=== PATIENT | male | born 1990 | race Caucasian/White ===

== ENCOUNTER 2017-01-19 00:22 | Emergency (ER) | payer OTHER ==
--- NOTE | 2017-01-19 02:25 | ED CLINICAL REPORT ---
Clinical Report - Physicians/Mid Levels [facility] [address] [place] [address] 01/19/2017 0:22 Patient: HARPREET BENNETT II Time Seen: 02:17. Arrived- By private vehicle. Historian- patient. HISTORY OF PRESENT ILLNESS Chief Complaint: HEADACHE. Is still present but is better now. This started today 6 PM. Onset during light activity. It is described as similar to previous headaches, pressure and sharp. Located in the region of the left eye and has had neck pain. At its maximum, severity described as 9 / 10. When seen in the E.D., severity described as 2 / 10. The patient has had nausea. No preceding symptoms, blurred vision, photophobia, numbness or weakness. No vomiting. (better withfood). Similar symptoms previously: ( 8 months ago. It was worse. Seen at Prov. CT done by patient report.). REVIEW OF SYSTEMS No fever, muscle aches, ear pain, sore throat or carbon monoxide exposure. No tick bite, head injury, chest pain, difficulty breathing or cough. No abdominal pain, diarrhea or pain with urination. PAST HISTORY PCP: Dr Julian German Ops: None Illness: Headaches, back pain,. SOCIAL HISTORY Never smoker. FAMILY HISTORY History of migraine headaches. ADDITIONAL NOTES The nursing notes have been reviewed. PHYSICAL EXAM Vital Signs: 01/19/2017 01:28 BP: 142/86. HR: 62. RR: 18. O2 saturation: 100%. Temp: 98.4 F. Pain level now: 3/10. Appearance: Alert. No acute distress. Eyes: Pupils equal, round and reactive to light. Eyes normal inspection. ENT: Pharynx normal. Neck: Normal inspection. Neck supple. CVS: Heart sounds normal. Respiratory: No respiratory distress. Abdomen: Soft and nontender. Skin: Normal skin color. Neuro: No alteration in mental status. Alertness is not decreased. Alert. Speech normal. Cranial nerves normal (as tested). No motor deficit. No sensory deficit. Normal gait. No Babinski reflex. PROGRESS AND PROCEDURES Course of Care: Pt has had similar NOBLE before. Sx CW common migraine. No sinus tenderness. Pain resolved while waiting. CLINICAL IMPRESSION Acute migraine headache. INSTRUCTIONS Follow-up: Follow up with your doctor in seven days. Reason for referral: HAVE YOUR DR EVALUATE YOUR HEADACHES. (Electronically signed by Jeancarlos Farris MD 01/19/2017 23:06)
--- NOTE | 2017-01-19 02:25 | ED NURSING NOTES ---
Clinical Report - Nurses [facility] [address] [place] [address] 01/19/2017 0:22 Patient: HARPREET BENNETT II TRIAGE Triage time 01:28. Acuity: LEVEL 4. Chief Complaint: MIGRAINE HEADACHE. Alert. No acute distress. ANNIE COMA SCORE: Annie Coma Scale: 15- eyes open spontaneously (4); best verbal response- oriented x 4 (5); best motor response- obeys commands (6). --01:32 TonyaB, R.N. 01:28 01/19/17. BP: 142/86. HR: 62. RR: 18. O2 saturation: 100%. Temp: 98.4 F. Pain level now: 01/08. --01:32 TonyaB, R.N. Weight: 68 kg. Height/Length: 71 inches. BMI: 20.9. --01:32 TonyaB, R.N. Medications OxyCODONE HCl Oral. --01:29 TonyaB, R.N. Benadryl Oral. --01:29 TonyaB, R.N. Methocarbamol Oral. --01:30 TonyaB, R.N. Allergies No Known Drug Allergy. --01:30 TonyaB, R.N. History Arrived by private vehicle. Historian: patient. Accompanied by friend. This started today. Patient was last known well (1800). 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 PAST MEDICAL HX: Immunizations: up-to-date. SOCIAL HX: Never smoker. No alcohol use or drug use. No recent travel. No infectious disease exposure. No known contact with a sick individual. FALL RISK ASSESSMENT: Fall risk assessment completed. No fall risk identified. NUTRITIONAL RISK ASSESSMENT: The nutritional risk assessment revealed no deficiencies. FUNCTIONAL ASSESSMENT: Functional assessment: no impairments noted. LEARNING NEEDS ASSESSMENT: The learning needs assessment revealed no barriers. SKIN INTEGRITY ASSESSMENT: Skin integrity risk assessment completed. No skin integrity risk identified. --01:32 TonyaB, R.N. ADDITIONAL SURGERIES: no known surgeries. Interventions ID band on patient. To treatment room. --01:32 TonyaB, R.N. PHYSICAL ASSESSMENT GENERAL / NEURO / PSYCH: Alert. Oriented X 4. Appears in no acute distress. Speech within normal limits. HEENT: No facial asymmetry noted. Pupils equal, round and reactive to light. RESPIRATORY: Respirations not labored. Breath sounds within normal limits. CVS: Capillary refill less than 2 seconds. GI / : Abdomen soft and nontender. SKIN: Skin is warm and dry. --01:33 Christian Grajeda DISPOSITION / DISCHARGE Departure time: 02:30. Condition at departure: improved. No learning barriers present. Discharge instructions provided and reviewed with the patient. Treatments reviewed. Reviewed referrals. Patient verbalized understanding. Written instructions provided in Samoan. No warning instructions, medication instructions, diet instructions, activity restrictions or follow up contact number given. No stop smoking instructions. No work note given or school note given. The patient was discharged by the physician. He was discharged home and accompanied by chemical analyst. He left the Emergency Department ambulatory and via private vehicle. Expressive Therapist driving. FALL RISK ASSESSMENT: Fall risk assessment completed. No fall risk identified. --02:30 Christian Grajeda 02:29 01/19/17. BP: 132/74. HR: 68. RR: 18. O2 saturation: 99%. Temp: deferred. Pain level now: 0/10. --02:30 Christian Grajeda Locked/Released at 01/19/2017 2:30 by Christian Grajeda
--- NOTE | 2017-01-19 02:25 | ED CLINICAL REPORT ---
Clinical Report - Physicians/Mid Levels [facility] [address] [place] [address] 01/19/2017 0:22 Patient: HARPREET BENNETT II Time Seen: 02:17. Arrived- By private vehicle. Historian- patient. HISTORY OF PRESENT ILLNESS Chief Complaint: HEADACHE. Is still present but is better now. This started today 6 PM. Onset during light activity. It is described as similar to previous headaches, pressure and sharp. Located in the region of the left eye and has had neck pain. At its maximum, severity described as 9 / 10. When seen in the E.D., severity described as 2 / 10. The patient has had nausea. No preceding symptoms, blurred vision, photophobia, numbness or weakness. No vomiting. (better withfood). Similar symptoms previously: ( 8 months ago. It was worse. Seen at Prov. CT done by patient report.). REVIEW OF SYSTEMS No fever, muscle aches, ear pain, sore throat or carbon monoxide exposure. No tick bite, head injury, chest pain, difficulty breathing or cough. No abdominal pain, diarrhea or pain with urination. PAST HISTORY PCP: Dr Julian German Ops: None Illness: Headaches, back pain,. SOCIAL HISTORY Never smoker. FAMILY HISTORY History of migraine headaches. ADDITIONAL NOTES The nursing notes have been reviewed. PHYSICAL EXAM Vital Signs: 01/19/2017 01:28 BP: 142/86. HR: 62. RR: 18. O2 saturation: 100%. Temp: 98.4 F. Pain level now: 3/10. Appearance: Alert. No acute distress. Eyes: Pupils equal, round and reactive to light. Eyes normal inspection. ENT: Pharynx normal. Neck: Normal inspection. Neck supple. CVS: Heart sounds normal. Respiratory: No respiratory distress. Abdomen: Soft and nontender. Skin: Normal skin color. Neuro: No alteration in mental status. Alertness is not decreased. Alert. Speech normal. Cranial nerves normal (as tested). No motor deficit. No sensory deficit. Normal gait. No Babinski reflex. PROGRESS AND PROCEDURES Course of Care: Pt has had similar NOBLE before. Sx CW common migraine. No sinus tenderness. Pain resolved while waiting. CLINICAL IMPRESSION Acute migraine headache. INSTRUCTIONS Follow-up: Follow up with your doctor in seven days. Reason for referral: HAVE YOUR DR EVALUATE YOUR HEADACHES. (Electronically signed by Jeancarlos Farris MD 01/19/2017 23:06)
--- NOTE | 2017-01-19 02:25 | ED NURSING NOTES ---
Clinical Report - Nurses [facility] [address] [place] [address] 01/19/2017 0:22 Patient: HARPREET BENNETT II TRIAGE Triage time 01:28. Acuity: LEVEL 4. Chief Complaint: MIGRAINE HEADACHE. Alert. No acute distress. ANNIE COMA SCORE: Anine Coma Scale: 15- eyes open spontaneously (4); best verbal response- oriented x 4 (5); best motor response- obeys commands (6). --01:32 TonyaB, R.N. 01:28 01/19/17. BP: 142/86. HR: 62. RR: 18. O2 saturation: 100%. Temp: 98.4 F. Pain level now: 01/08. --01:32 TonyaB, R.N. Weight: 68 kg. Height/Length: 71 inches. BMI: 20.9. --01:32 TonyaB, R.N. Medications OxyCODONE HCl Oral. --01:29 TonyaB, R.N. Benadryl Oral. --01:29 TonyaB, R.N. Methocarbamol Oral. --01:30 TonyaB, R.N. Allergies No Known Drug Allergy. --01:30 TonyaB, R.N. History Arrived by private vehicle. Historian: patient. Accompanied by friend. This started today. Patient was last known well (1800). 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 PAST MEDICAL HX: Immunizations: up-to-date. SOCIAL HX: Never smoker. No alcohol use or drug use. No recent travel. No infectious disease exposure. No known contact with a sick individual. FALL RISK ASSESSMENT: Fall risk assessment completed. No fall risk identified. NUTRITIONAL RISK ASSESSMENT: The nutritional risk assessment revealed no deficiencies. FUNCTIONAL ASSESSMENT: Functional assessment: no impairments noted. LEARNING NEEDS ASSESSMENT: The learning needs assessment revealed no barriers. SKIN INTEGRITY ASSESSMENT: Skin integrity risk assessment completed. No skin integrity risk identified. --01:32 TonyaB, R.N. ADDITIONAL SURGERIES: no known surgeries. Interventions ID band on patient. To treatment room. --01:32 TonyaB, R.N. PHYSICAL ASSESSMENT GENERAL / NEURO / PSYCH: Alert. Oriented X 4. Appears in no acute distress. Speech within normal limits. HEENT: No facial asymmetry noted. Pupils equal, round and reactive to light. RESPIRATORY: Respirations not labored. Breath sounds within normal limits. CVS: Capillary refill less than 2 seconds. GI / : Abdomen soft and nontender. SKIN: Skin is warm and dry. --01:33 Christian Grajeda DISPOSITION / DISCHARGE Departure time: 02:30. Condition at departure: improved. No learning barriers present. Discharge instructions provided and reviewed with the patient. Treatments reviewed. Reviewed referrals. Patient verbalized understanding. Written instructions provided in American. No warning instructions, medication instructions, diet instructions, activity restrictions or follow up contact number given. No stop smoking instructions. No work note given or school note given. The patient was discharged by the physician. He was discharged home and accompanied by brim stretching machine operator. He left the Emergency Department ambulatory and via private vehicle. Weapons Officer [employer] driving. FALL RISK ASSESSMENT: Fall risk assessment completed. No fall risk identified. --02:30 Christian rGajeda 02:29 01/19/17. BP: 132/74. HR: 68. RR: 18. O2 saturation: 99%. Temp: deferred. Pain level now: 0/10. --02:30 Christian Grajeda Locked/Released at 01/19/2017 2:30 by Christian Grajeda
--- NOTE | 2017-01-19 23:06 | ED MED RECONCILIATION SUMMARY ---
Patient: HARPREET BENNETT II Medication Reconciliation Report [facility] VisitID: [id number] [address] [place] [address] 26y, M Registration Date/Time: 01/19/2017 Weight: 68.0 kg Height/Length: 71 in. BMI: 20.9 ALLERGIES: No Known Drug Allergy The patient's Home Medications are listed below: THE FOLLOWING MEDICATIONS NEED TO BE RECONCILED: Benadryl Oral Methocarbamol Oral OxyCODONE HCl Oral The source(s) of the original Home Medication information: Not obtained. The following Medications were given to the patient in the Emergency Department: None. The following Medications were prescribed to the patient: None.
--- NOTE | 2017-01-19 23:06 | ED MAR SUMMARY ---
..... Medication Administration Record [facility] [address] [place], [place] [id number] Patient: HARPREET BENNETT Visit ID: [id number] 26y, M Weight: 68.0 kg Height/Length: 71 in BMI: 20.9 ALLERGIES: No Known Drug Allergy
--- NOTE | 2017-01-19 23:06 | ED MED RECONCILIATION SUMMARY ---
Patient: HARPREET BENNETT II Medication Reconciliation Report [facility] VisitID: [id number] [address] [place] [address] 26y, M Registration Date/Time: 01/19/2017 Weight: 68.0 kg Height/Length: 71 in. BMI: 20.9 ALLERGIES: No Known Drug Allergy The patient's Home Medications are listed below: THE FOLLOWING MEDICATIONS NEED TO BE RECONCILED: Benadryl Oral Methocarbamol Oral OxyCODONE HCl Oral The source(s) of the original Home Medication information: Not obtained. The following Medications were given to the patient in the Emergency Department: None. The following Medications were prescribed to the patient: None.
--- NOTE | 2017-01-19 23:06 | ED MAR SUMMARY ---
..... Medication Administration Record [facility] [address] [place], [place] [id number] Patient: HARPREET BENNETT Visit ID: [id number] 26y, M Weight: 68.0 kg Height/Length: 71 in BMI: 20.9 ALLERGIES: No Known Drug Allergy
--- NOTE | 2017-01-19 23:06 | ED DISCHARGE INSTRUCTIONS ---
Patient: HARPREET BENNETT II General Instructions [facility] VisitID: [id number] [place] [address] 26y, M Registration Date/Time: 01/19/2017 Acute migraine headache. INSTRUCTIONS Follow-up: Follow up with your doctor in seven days. Reason for referral: HAVE YOUR DR EVALUATE YOUR HEADACHES. ADDITIONAL INFORMATION Migraine Headache Migraine headaches are related to changes in blood flow to the brain. This causes throbbing or constant pain on one or both sides of the head. The pain may last from a few hours to several days. There is usually nausea, vomiting, sensitivity to light and sound, and blurred vision. A migraine attack may be triggered by emotional stress, hormone changes during the menstrual cycle, oral contraceptives, alcohol use, certain foods containing tyramine, eye strain, weather changes, missing meals, or too little or too much sleep. Home Care For This Headache: 1) If you were given pain medicine for this headache, do not drive yourself home . Arrange for a ride, instead. When you get home, try to sleep. You should feel much better when you wake up. 2) Migraine headaches may improve with an ice pack on the forehead or at the base of the skull. Heat to the back of your neck may relieve any neck spasm. 3) Drink only clear liquids or eat a very light diet to avoid nausea/vomiting until symptoms improve. Preventing Future Headaches: 1) Pay attention to those factors that seem to trigger your headache. Try to avoid them when you can. If you have frequent headaches, it is useful to keep a diary of what you were doing, feeling or eating in the hours before each attack. Show this to your doctor to help find the cause of your headaches. a) If you feel that stress is a factor in your headaches, look at the sources of stress in your life. Find ways to release the build-up of those stresses by using regular exercise, relaxation methods (yoga, meditation), bio-feedback or simply taking time-out for yourself. For more information about this, consult your doctor or go to a local bookstore and review books and tapes on this subject. b) Tyramine is a substance present in the following foods : chocolate, yogurt, all cheeses except cottage cheese and cream cheese. smoked or pickled fish and meat (including raya, caviar, bologna, pepperoni, salami), liver, avocados, bananas, figs, raisins, and red wine. Be aware that these foods may trigger a migraine in some persons. Try taking these foods out of your diet for 1-2 months to see if this reduces headache frequency. Treating Future Attacks: 1) At the first sign of a headache, take time out if possible. Find a quiet, dark, comfortable place to sit or lie down. Let yourself relax or sleep. 2) An ice pack on the forehead or area of greatest pain may help. If you are having muscle spasm and tightness of the neck, a heating pad and massage to this area may be helpful. 3) If you have been prescribed a medicine to stop a migraine headache, use this at the very first warning sign of the headache (aura or initial pain) for best results. Follow Up with your doctor if the headache is not better within the next 24 hours. If you have frequent headaches you should discuss a treatment plan with your primary care doctor. Ask if you can have medicine to take at home the next time you get a bad headache. Poorly controlled chronic headaches may require a referral to a neurologist (headache specialist). Get Prompt Medical Attention if any of the following occur: Your head pain gets worse, or does not improve within 24 hours Repeated vomiting (cant keep liquids down) Sinus or ear or throat pain (not already reported) Fever of 100.4 F (38 C) or higher, or as directed by your healthcare provider Stiff neck Extreme drowsiness, confusion or fainting Dizziness, vertigo (dizziness with spinning sensation) Weakness of an arm or leg or one side of the face Difficulty with speech or vision You have been given the following additional information: Headache, Migraine (Classical) (Electronically signed by Jeancarlos Farris MD 01/19/2017 23:06)
== END 2017-01-19 02:25 | disposition home or self-care (01) ==
LOC: ED SRH 00:22
DX: G43.009 Migraine without aura, not intractable, without status migrainosus (principal)